=== PATIENT | female | born 1995 | race Caucasian/White ===

== ENCOUNTER 2017-08-07 15:54 | Outpatient (CLI) | payer OTHER ==
[~2017-08-07] VITALS: Ht 152.4 cm; Wt 85.8 kg
[2017-08-07] MEDS ORDERED: PNV11TAB PO (16:12)
[2017-08-07 20:13] LABS: ADD UMIC YES; UR ASCORBIC ACID 40 mg/dL (NEGATIVE); UR BACTERIA MANY /HPF (NONE SEEN); UR BILIRUBIN (Dip) NEGATIVE (NEGATIVE); UR BLOOD (Dip) NEGATIVE (NEGATIVE); UR CLARITY CLOUDY (CLEAR); UR COLOR AMBER (YELLOW); UR GLUCOSE (Dip) NEGATIVE (NEGATIVE); UR KETONES (Dip) NEGATIVE (NEGATIVE); UR LEUKOCYTE ESTERASE (Dip) 2+ Leu/ul (NEGATIVE); UR MUCUS MODERATE /HPF (NONE SEEN); UR NITRITE (Dip) NEGATIVE (NEGATIVE); UR RBC 3 /HPF (0-5); UR SPECIFIC GRAVITY (Dip) 1.029 (1.003-1.030); UR SQUAMOUS EPITHELIAL CELL MANY /HPF (FEW); UR TOTAL PROTEIN (Dip) 1+ mg/dl (NEGATIVE); UR UROBILINOGEN (Dip) 1+ mg/dL (NEGATIVE)
--- NOTE | 2017-08-07 23:19 | PN ---
Triage Information Date/Time 08/07/1710/12/2310 Reason for visit: Uterine contractions Weeks of Gestation 38weeks /Para A1 Hypertention: none Objective Heart Rate: 140's Heart Rate Comments irregular U.C Contractions: >10 Minutes Apart Exam VE ftp /60/-3 Results/Medications Results 24 hrs Laboratory Tests Test 08/07/17 19:00 Urine Color CHRIS Urine Clarity CLOUDY A Urine pH 5.0 Urine Specific [place] 1.029 Urine Ketones NEGATIVE Urine Nitrite NEGATIVE Urine Bilirubin NEGATIVE Urine Urobilinogen 1+ H Urine Leukocyte Esterase 2+ H Urine Microscopic RBC 3 Urine Microscopic WBC 21 H Urine Squamous Epithelial Cells MANY A Urine Bacteria MANY A Urine Mucus MODERATE Urine Hemoglobin NEGATIVE Urine Glucose NEGATIVE Urine Total Protein 1+ H Disposition: Discharge Assessment/Plan IUP 38weeks latent phase PLAN discharge home with routine labor instructions RTH prLEANDER Arriola MD Aug 07, 2017 23:19
== END 2017-08-07 20:15 | disposition home or self-care (01) ==
LOC: OBT 15:54 → L-D 15:57 → OBT 20:15
PROVIDERS: ATTEND Obstetrics & Gynecology
DX: O62.9 Abnormality of forces of labor, unspecified (principal); Z3A.38 38 weeks gestation of pregnancy
CPT/HCPCS: 81001; 87086; Z7500; G0463

== ENCOUNTER 2017-08-18 00:25 | Inpatient (IN) | payer OTHER ==
[~2017-08-18] VITALS: Ht 152.4 cm; Wt 86.8 kg
[~2017-08-18 00:25] MED LIST: PNV11TAB PO
[2017-08-18 00:48] VITALS: BP 145/93; PULSE 85; RESP 16
--- NOTE | 2017-08-18 01:18 | TRIAGE ---
OB Triage Datetime Report Generated by CPN: 08/18/2017 01:18 Datetime: 08/18/2017 00:54 Assessment Type: Triage Maternal Assessment Level of Consciousness: Fully Conscious DTR's/Clonus: DTRs 2+; No Clonus Headache: Denies Blurred Vision: No Respiratory Effort: Unlabored; Regular Rhythm; Equal Expansion Breath Sounds, Left: Clear and Equal Breath Sounds, Right: Clear and Equal Nausea/Vomiting: Denies RUQ Epigastric Pain: Denies Facial Edema: None Fall Risk Assessment History of Falling: (0) No Secondary Diagnosis: (0) No Ambulatory Aid: (0) Bedrest/Nurse Assist IV Therapy: (0) No Gait: (0) Normal/Bedrest/Immobile Mental Status: (0) Oriented to Own Ability Fall Score: 0 Fall Risk Score Definition: No Risk: No action required Comment: PRESENTED TO TRIAGE C_O PAIN 03/05 SINCE 2099. DENIES LEAKING OR BLEEDING. FOB SUPPORTIVE AT BEDSIDE. Datetime: 08/18/2017 00:46 Labor Evaluation Frequency: X1 Monitor Mode: External Duration (sec)2399: 130 Quality: Mild Pattern: Normal: <= 5 Contractions in 10 Minutes Resting Tone [place]: Relaxed Heart Rate FHR Baseline Rate: 145 Monitor Mode: External US FHR Baseline Changes: No Baseline Change Variability: Moderate 6-25 bpm Accelerations: 15X15 Decelerations: None Category: Category I Datetime: 08/07/2017 20:00 Labor Evaluation Frequency: NONE Monitor Mode: External Duration (sec)2399: NONE Pattern: Normal: <= 5 Contractions in 10 Minutes Heart Rate FHR Baseline Rate: 135 Monitor Mode: External US FHR Baseline Changes: No Baseline Change Variability: Moderate 6-25 bpm Accelerations: 15X15 Datetime: 08/07/2017 19:17 Monitor Mode: Palpation Resting Tone [place]: Relaxed Contraction Comments: palpated movement Datetime: 08/07/2017 19:15 Stage of : OB Triage Assessment Type: Triage Maternal Assessment Level of Consciousness: Fully Conscious Headache: Denies Blurred Vision: No Respiratory Effort: Unlabored; Regular Rhythm; Equal Expansion Nausea/Vomiting: Denies RUQ Epigastric Pain: Denies Facial Edema: None Fall Risk Assessment History of Falling: (0) No Secondary Diagnosis: (0) No Ambulatory Aid: (0) Bedrest/Nurse Assist IV Therapy: (0) No Gait: (0) Normal/Bedrest/Immobile Mental Status: (0) Oriented to Own Ability Fall Score: 0 Fall Risk Score Definition: No Risk: No action required Datetime: 08/07/2017 19:12 Pain Assessment Comments: pt. states pain has improved, cramping is less Datetime: 08/07/2017 18:39 Labor Evaluation Frequency: 0 Monitor Mode: External Heart Rate FHR Baseline Rate: 135 Monitor Mode: External US FHR Baseline Changes: No Baseline Change Variability: Moderate 6-25 bpm Accelerations: 15X15 Decelerations: None Category: Category I Pain Assessment Pain Presence: None/Denies Datetime: 08/07/2017 17:47 Vaginal Exam Dilatation (cms): 0.5 Effacement (%): 50 Station: -3 Datetime: 08/07/2017 17:29 Labor Evaluation Frequency: 0 Monitor Mode: External Heart Rate FHR Baseline Rate: 140 FHR Baseline Changes: No Baseline Change Variability: Moderate 6-25 bpm Accelerations: 15X15 Decelerations: None Category: Category I Pain Assessment Pain Presence: None/Denies Datetime: 08/07/2017 16:40 Labor Evaluation Frequency: 0 Monitor Mode: External Heart Rate FHR Baseline Rate: 135 Monitor Mode: External US FHR Baseline Changes: No Baseline Change Variability: Moderate 6-25 bpm Accelerations: 15X15 Decelerations: None Category: Category I Pain Assessment Pain Presence: None/Denies Datetime: 08/07/2017 16:31 Time of Arrival: 08/18/2017 00:25 EGA: 39.5 Chief Complaint: UC'S SINCE 2099 Movement: Present Contractions: Irregular Rupture of Membranes: Ruptured Vaginal Bleeding: None Vaginal Discharge: Denies Recent Sexual Intercouse: Denies Abdominal Trauma: Not Applicable Patient Complaints: Contractions Time Provider Notified: 08/18/2017 01:10 Provider Notified: Initial Plan: EFM, VE. Datetime: 08/07/2017 15:45 Time of Arrival: 08/07/2017 15:45 Arrived By: Ambulatory Arrived From: Home Chief Complaint: CRAMPING Movement: Present Contractions: Irregular Rupture of Membranes: Denies Vaginal Bleeding: None Vaginal Discharge: Denies Recent Sexual Intercouse: Denies Abdominal Trauma: Not Applicable Patient Complaints: Contractions; Cramping Time Provider Notified: 08/07/2017 16:30 Provider Notified: ABUSLEME Initial Plan: PO HYDRATION, UA, URINE CULTURE, VE Datetime: 08/07/2017 15:00 Stage of : OB Triage Assessment Type: Triage Maternal Assessment Level of Consciousness: Fully Conscious DTR's/Clonus: DTRs 2+; No Clonus Headache: Denies Blurred Vision: No Respiratory Effort: Unlabored; Regular Rhythm; Equal Expansion Breath Sounds, Left: Clear and Equal Breath Sounds, Right: Clear and Equal Nausea/Vomiting: Denies RUQ Epigastric Pain: Denies Facial Edema: None Temperature Route: Oral Fall Risk Assessment History of Falling: (0) No Secondary Diagnosis: (0) No Ambulatory Aid: (0) Bedrest/Nurse Assist IV Therapy: (0) No Gait: (0) Normal/Bedrest/Immobile Mental Status: (0) Oriented to Own Ability Fall Score: 0 Fall Risk Score Definition: No Risk: No action required Labor Evaluation Frequency: OCC Monitor Mode: External Quality: Mild Pattern: Normal: <= 5 Contractions in 10 Minutes Heart Rate FHR Baseline Rate: 150 Monitor Mode: External US FHR Baseline Changes: No Baseline Change Variability: Moderate 6-25 bpm Accelerations: 15X15 Decelerations: None Category: Category I Datetime: 08/07/2017 14:45 Stage of : OB Triage
[2017-08-18] MEDS ORDERED: AMPICILLIN 2 GM/NS (PMX) 100 ML IV ONE (01:30)
[2017-08-18] MEDS ORDERED: MISOPROSTOL 200 MCG TAB PR PRN ×2 (01:30→16:30)
[2017-08-18] MEDS ORDERED: BUTORPHANOL 2 MG INJ IV PRN (01:30)
[2017-08-18] MEDS ORDERED: DINOPROSTONE 10 MG VAG SUPP VAG ONE (01:30)
[2017-08-18] MEDS ORDERED: ACETAMINOPHEN 325 MG TAB PO PRN ×3 (01:30→16:30)
[2017-08-18] MEDS ORDERED: IBUPROFEN 600 MG TAB PO PRN (01:30)
[2017-08-18] MEDS ORDERED: LABETALOL HCL 20MG INJ IV PRN (01:30)
[2017-08-18] MEDS ORDERED: OXYTOCIN 30 UNITS/LR 500 ML IV SCH ×2 (01:30)
[2017-08-18] MEDS ORDERED: LACTATED RINGER'S 1,000 ML IV PRN (01:30)
[2017-08-18] MEDS ORDERED: LIDOCAINE 1% (MPF) 30 ML INJ INJ PRN (01:30)
[2017-08-18] MEDS ORDERED: MAGNESIUM SULFATE 4 GM/100 ML 100 ML IVPB ONE (01:30)
[2017-08-18] MEDS ORDERED: CARBOPROST 250 MCG INJ IM PRN ×2 (01:30→16:30)
[2017-08-18] MEDS ORDERED: OXYTOCIN 30 UNITS/LR 500 ML IV PRN ×2 (01:30→16:30)
[2017-08-18] MEDS ORDERED: METHYLERGONOVINE 0.2 MG INJ IM PRN ×2 (01:30→16:30)
[2017-08-18 01:55] LABS: ADD UMIC YES; UR ASCORBIC ACID NEGATIVE (NEGATIVE); UR BACTERIA FEW /HPF (NONE SEEN); UR BILIRUBIN (Dip) NEGATIVE (NEGATIVE); UR BLOOD (Dip) NEGATIVE (NEGATIVE); UR CLARITY SLIGHTLY CLOUDY (CLEAR); UR COLOR YELLOW (YELLOW); UR GLUCOSE (Dip) NEGATIVE (NEGATIVE); UR KETONES (Dip) NEGATIVE (NEGATIVE); UR LEUKOCYTE ESTERASE (Dip) 1+ Leu/ul (NEGATIVE); UR MUCUS FEW /HPF (NONE SEEN); UR NITRITE (Dip) NEGATIVE (NEGATIVE); UR RBC 2 /HPF (0-5); UR SPECIFIC GRAVITY (Dip) 1.021 (1.003-1.030); UR SQUAMOUS EPITHELIAL CELL FEW /HPF (FEW); UR TOTAL PROTEIN (Dip) 1+ mg/dl (NEGATIVE); UR UROBILINOGEN (Dip) NEGATIVE (NEGATIVE)
[2017-08-18] MEDS: LACTATED RINGER'S 1,000 ML IV SCH ×3 (02:58→23:57)
[2017-08-18 03:14] VITALS: Ht 152.4 cm; Wt 86.8 kg
[2017-08-18] MEDS: MAGNESIUM SULFATE 20 GM/500 ML 500 ML IV SCH ×3 (03:47→23:48)
[2017-08-18 03:50] LABS: INR 0.92; PROTIME 12.4 Sec (12.2-14.2)
[2017-08-18 03:51] LABS: PARTIAL THROMBOPLASTIN TIME 25.1 Sec (25.0-35.0)
[2017-08-18 03:57] LABS: ALBUMIN 3.4 g/dl (3.3-4.9); ALBUMIN/GLOBULIN RATIO 0.89; BILIRUBIN,INDIRECT 0.1 mg/dl (0-1.1); BILIRUBIN,TOTAL 0.1 mg/dl (0.2-1.3); CREATININE 0.55 mg/dl (0.44-1.00); POTASSIUM 4.1 mmol/L (3.5-5.1); TOTAL PROTEIN 7.2 g/dl (6.1-8.1); URIC ACID 4.2 mg/dl (3.1-7.9)
[2017-08-18 04:00] LABS: BASOPHILS % 0.1 % (0.0-2.0); EOSINOPHILS % 0.3 % (0.0-7.0); HEMATOCRIT 39.8 % (37.0-47.0); HEMOGLOBIN 13.1 g/dl (12.0-16.0); LYMPHOCYTES # 2.2 10^3/ul (0.8-2.9); LYMPHOCYTES % 14.4 % (18.0-55.0); MEAN CORPUSCULAR HEMOGLOBIN 28.9 pg (29.0-33.0); MEAN CORPUSCULAR HGB CONC 32.9 g/dl (32.0-37.0); MEAN CORPUSCULAR VOLUME 87.7 fl (72.0-104.0); MEAN PLATELET VOLUME 9.7 fl (7.4-10.4); MONOCYTE # 1.3 10^3/ul (0.3-0.9); MONOCYTES % 8.5 % (0.0-13.0); NEUTROPHIL # 11.5 10^3/ul (1.6-7.5); NEUTROPHILS % 76.3 % (30.0-74.0); PLATELET COUNT 312 10^3/UL (140-415); RED BLOOD COUNT 4.54 10^6/ul (4.20-5.40); RED CELL DISTRIBUTION WIDTH 14.6 % (11.5-14.5); WHITE BLOOD COUNT 15.1 10^3/ul (4.8-10.8)
[2017-08-18] MEDS ORDERED: AMPICILLIN 1 GM/NS (PMX) 50 ML IV SCH (05:30)
[2017-08-18] MEDS ORDERED: FENTAnyl 2MCG/ML-ROPIV 0.2% 100 ML ONE (06:20)
[2017-08-18] MEDS ORDERED: HYDROmorphONE 0.5 MG/0.5 ML SYG IV PRN ×2 (14:00)
[2017-08-18] MEDS ORDERED: NALOXONE (0.4 MG/ML) INJ IV PRN (14:00)
[2017-08-18] MEDS ORDERED: FENTAnyl 2MCG/ML-ROPIV 0.2% 100 ML BAG EPI SCH (14:00)
[2017-08-18] MEDS ORDERED: KETOROLAC 30 MG INJ IV PRN (14:00)
[2017-08-18] MEDS ORDERED: ONDANSETRON 4 MG INJ IV PRN ×2 (14:00→16:30)
--- NOTE | 2017-08-18 16:28 | HP ---
Date/Time of Note Date/Time of Note DATE: 08/18/17 TIME: 16:19 OB - History Hx of Present Chief Complaint: Uterine contractions Last Menstrual Period: Nov 13, 2016 Estimated Due Date: Aug 20, 2017 : 2 Spontaneous : 1 Care: Good Care Obstetrical Complications: Pre-eclampsia Medical Complications: None Past Family/Social History * Past Medical, Surgical, Family and Obstetric Histories reviewed from chart. Blood Type: B+ Rubella: not immune RPR/VDRL: Negative GBS Status: Negative HBsAG: Negative OB Admission Exam Vital Signs Vital Signs Vital Signs Date Time Temp Pulse Resp B/P Pulse Ox O2 Delivery O2 Flow Rate FiO2 08/18/17 00:48 98.1 85 16 145/93 Room Air Physical Exam HEENT: WNL Heart: Rhythm Normal Lungs: Clear, Equal Abdomen: WNL Extremities: Normal Reflexes: Normal Cervical Dilatation: 3cm Effacement: 50% Station: -2 Membranes: Intact Accelerations: Accelerations Present Varibility: Moderate Contractions on Admission: < 5 Minutes Apart Intensity: Moderate Last 72 hours Lab Results CBC & BMP 08/18/17 03:00 Liver Function Test 08/18/17 03:00 Alanine Aminotransferase (ALT/SGPT) 28 Albumin 3.4 Alkaline Phosphatase 211 H Aspartate Amino Transf (AST/SGOT) 17 Direct Bilirubin 0.00 Total Protein 7.2 Magnesium Level Test 08/18/17 07:29 08/18/17 12:32 Magnesium Level 4.6 H 5.5 *H OB Assessment/Plan Reason for admission: active labor Other Assessment: mild PIH Other plan: delivery FOREST LEE MD Aug 18, 2017 16:28
[2017-08-18] MEDS ORDERED: LANOLIN 7 GM TUBE TOP PRN (16:30)
[2017-08-18] MEDS ORDERED: BENZOCAINE 20% 56 ML SPRAY TOP PRN (16:30)
[2017-08-18] MEDS ORDERED: DIPHENHYDRAMINE 25 MG CAP PO PRN (16:30)
[2017-08-18] MEDS ORDERED: HYDROCODONE/APAP (5/325) TAB PO PRN ×2 (16:30)
[2017-08-18] MEDS ORDERED: DIBUCAINE 1% 30 GM OINT PR PRN (16:30)
[2017-08-18] MEDS: OXYTOCIN 30 UNITS/LR 500 ML IV SCH ×2 (17:01→17:05)
--- NOTE | 2017-08-18 17:07 | LDN ---
Date/Time of Note Date/Time of Note DATE: 08/18/17 TIME: 17:01 Delivery Summary SPONTANEOUS VAGINAL DELIVERY PLACENTAL RETENTION CURETTAGE Weeks of Gestation 39.5 WEEKS GESTATION IN LABOR MILD PIH AUGMENTATION OF LABOR SPONTANEOUS VAGINAL DELIVERY CURETTAGE DUE TO PLACENTAL RETENTION NO LACERATIONS Placenta Delivered: Spontaneously Meconium: Light Episiotomy: No Anesthesia type: Epidural Estimated blood loss: 200 Sponge & Needle done & correct: Yes All needle counts correct: Yes Any foreign bodies felt in the: No Problems: Infant Delivery Information Sex Infant Sex: male Apgars 1 Minute: 9 5 Minute: 9 Suctioning Nose & mouth suctioned at [place]: Yes Umbilical Cord Umbilical cord with: 3 Vessels Cord presentations: no nuchal cord Cord Blood was obtained: Yes Mother & Baby Disposition Disposition Mom & Baby to Maternity; Good: Yes FOREST LEE MD Aug 18, 2017 17:07
[2017-08-18 19:30] VITALS: BP 138/79; PULSE 121; RESP 24
[2017-08-18 21:00] VITALS: BP 133/70; PULSE 123; RESP 22
[2017-08-18] MEDS: SENNA/DOCUSATE NA (8.6MG/50MG) TAB PO SCH (21:33)
[2017-08-18] MEDS: LABETALOL 100 MG TAB PO SCH (21:33)
[2017-08-18 22:00] VITALS: BP 119/63; PULSE 117; RESP 20
[2017-08-18 23:00] VITALS: BP 83/59; PULSE 121; RESP 20
[2017-08-18] MEDS: IBUPROFEN 800 MG TAB PO SCH (23:50)
[2017-08-19] VITALS (13 sets, daily range): BP systolic 81–131; BP diastolic 41–68; PULSE 8–121; RESP 16–20
[2017-08-19 00:53] LABS: ADD UMIC YES; UR ASCORBIC ACID NEGATIVE (NEGATIVE); UR BILIRUBIN (Dip) NEGATIVE (NEGATIVE); UR BLOOD (Dip) 3+ mg/dL (NEGATIVE); UR CLARITY CLEAR (CLEAR); UR COLOR YELLOW (YELLOW); UR GLUCOSE (Dip) NEGATIVE (NEGATIVE); UR KETONES (Dip) NEGATIVE (NEGATIVE); UR LEUKOCYTE ESTERASE (Dip) NEGATIVE Leu/ul (NEGATIVE); UR MUCUS FEW /HPF (NONE SEEN); UR NITRITE (Dip) NEGATIVE (NEGATIVE); UR RBC 107 /HPF (0-5); UR SPECIFIC GRAVITY (Dip) 1.011 (1.003-1.030); UR TOTAL PROTEIN (Dip) NEGATIVE (NEGATIVE); UR UROBILINOGEN (Dip) NEGATIVE (NEGATIVE)
[2017-08-19] MEDS: MAGNESIUM SULFATE 20 GM/500 ML 500 ML IV SCH ×2 (03:30→13:30)
[2017-08-19] MEDS: IBUPROFEN 800 MG TAB PO SCH ×4 (06:13→23:55)
[2017-08-19] MEDS: LABETALOL 100 MG TAB PO SCH ×2 (09:00→21:00)
[2017-08-19] MEDS: SENNA/DOCUSATE NA (8.6MG/50MG) TAB PO SCH ×2 (09:16→21:51)
[2017-08-19 10:40] LABS: BASOPHILS % 0.2 % (0.0-2.0); EOSINOPHILS # 0.1 10^3/ul (0.0-0.5); EOSINOPHILS % 0.3 % (0.0-7.0); HEMATOCRIT 35.6 % (37.0-47.0); HEMOGLOBIN 11.6 g/dl (12.0-16.0); LYMPHOCYTES # 2.2 10^3/ul (0.8-2.9); LYMPHOCYTES % 11.7 % (18.0-55.0); MEAN CORPUSCULAR HEMOGLOBIN 28.6 pg (29.0-33.0); MEAN CORPUSCULAR HGB CONC 32.6 g/dl (32.0-37.0); MEAN CORPUSCULAR VOLUME 87.9 fl (72.0-104.0); MEAN PLATELET VOLUME 9.3 fl (7.4-10.4); MONOCYTE # 1.1 10^3/ul (0.3-0.9); MONOCYTES % 5.8 % (0.0-13.0); NEUTROPHIL # 15.5 10^3/ul (1.6-7.5); NEUTROPHILS % 81.3 % (30.0-74.0); PLATELET COUNT 263 10^3/UL (140-415); RED BLOOD COUNT 4.05 10^6/ul (4.20-5.40); RED CELL DISTRIBUTION WIDTH 15.4 % (11.5-14.5)
[2017-08-19 10:49] LABS: PROTIME 13.2 Sec (12.2-14.2)
[2017-08-19 10:50] LABS: PARTIAL THROMBOPLASTIN TIME 27.8 Sec (25.0-35.0)
--- NOTE | 2017-08-19 11:16 | PN ---
Date/Time of Note Date/Time of Note DATE: 08/19/17 TIME: 11:14 OB Subjective Subjective Subjective Feels good day 1 with mild preeclampsia patient has no fever no headaches dizziness nor epigastric pain and no leg edema, normal reflexes she had ask the Fu to be removed and discontinue the magnesium sulfate due to low blood pressure. This will be done and will will follow closely Blood pressure is not an issue she has been controlled OB Objective HEENT: WNL Heart: Rhythm Normal Lungs: Clear, Equal Abdomen: WNL Extremities: Normal Reflexes: Normal FOREST LEE MD Aug 19, 2017 11:16
[2017-08-19] MEDS: LACTATED RINGER'S 1,000 ML IV SCH (20:00)
[2017-08-20 04:00] VITALS: BP 101/57; PULSE 91; RESP 20
[2017-08-20] MEDS: IBUPROFEN 800 MG TAB PO SCH ×2 (05:29→12:24)
[2017-08-20 08:20] VITALS: BP 112/59; PULSE 71; RESP 16
[2017-08-20] MEDS: SENNA/DOCUSATE NA (8.6MG/50MG) TAB PO SCH (08:35)
[2017-08-20] MEDS: LABETALOL 100 MG TAB PO SCH (08:36)
[2017-08-20] MEDS ORDERED: DIPHTH/TET/ACEL PERTUSS (ADULT) 0.5 ML VIAL IM* ONE (09:00)
[2017-08-20] MEDS ORDERED: MEASLES,MUMPS,RUBELLA VACCINE INJ SC* ONE (09:00)
[2017-08-20] MEDS ORDERED: VARICELLA VACCINE LIVE/PF 1,350 UNIT/0.5 ML ML SC* ONE (09:00)
[2017-08-20 10:48] LABS: BASOPHIL # 0.1 10^3/ul (0.0-0.1); BASOPHILS % 0.3 % (0.0-2.0); EOSINOPHILS # 0.3 10^3/ul (0.0-0.5); EOSINOPHILS % 1.7 % (0.0-7.0); HEMATOCRIT 34.1 % (37.0-47.0); LYMPHOCYTES # 2.2 10^3/ul (0.8-2.9); LYMPHOCYTES % 14.6 % (18.0-55.0); MEAN CORPUSCULAR HGB CONC 32.3 g/dl (32.0-37.0); MEAN PLATELET VOLUME 9.1 fl (7.4-10.4); MONOCYTES % 6.8 % (0.0-13.0); NEUTROPHIL # 11.3 10^3/ul (1.6-7.5); NEUTROPHILS % 75.9 % (30.0-74.0); PLATELET COUNT 277 10^3/UL (140-415); RED BLOOD COUNT 3.79 10^6/ul (4.20-5.40); RED CELL DISTRIBUTION WIDTH 15.4 % (11.5-14.5); WHITE BLOOD COUNT 14.9 10^3/ul (4.8-10.8)
--- NOTE | 2017-08-20 11:10 | PD.PPDC ---
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
--- NOTE | 2017-08-20 11:12 | DS ---
Date/Time of Note Date/Time of Note DATE: 08/20/17 TIME: 11:11 Obstetrical Discharge Record Final Diagnosis Final Diagnosis: Term delivered Vaginal Delivery Obstetrical Delivery: Spontaneous Complications Preg induced Hypertension Augmentation: Yes Tocolytics: Magnesium Sulfate Condition on Discharge Physical Assessment Voiding: Yes Bowel Movement: Yes Breast: Soft, non-tender, Filling Fundus: Firm Calf Tenderness: No Patient Condition: Good FOREST LEE MD Aug 20, 2017 11:12
== END 2017-08-20 13:10 | disposition home or self-care (01) | DRG 775 ==
LOC: OBT 00:25 → L-D 00:30 → OBT 01:10 → PP1 19:30
PROVIDERS: ADMIT Obstetrics & Gynecology; ATTEND Obstetrics & Gynecology
PROC: 10E0XZZ Delivery of Products of Conception, External Approach (ICD-10-PCS; principal; 2017-08-18)
PROC: 3E0P3VZ Introduction of Hormone into Female Reproductive, Percutaneous Approach (ICD-10-PCS; 2017-08-18)
DX: O13.4 Gestational [pregnancy-induced] hypertension without significant proteinuria, complicating childbirth (principal); Z37.0 Single live birth; Z3A.39 39 weeks gestation of pregnancy
CPT/HCPCS: 80053; 81001; 83735; 84560; 85025; 85384; 85610; 85730; 86592; 86900; 86901; 87070; 87340; 88307; 90715; 90716; G0463; J0290; J0595; J2590; J3010; J3475; J7120